=== PATIENT | female | born 1970 | race Caucasian/White ===

== ENCOUNTER → 2023-10-05 06:41 | Day surgery (SDC) | payer OTHER, SELFPAY | LOC: GI 06:41 | PROVIDERS: ATTENDING PHYSICIAN Internal Medicine Gastroenterology; FAMILY PHYSICIAN Internal Medicine | DX: Z12.11 Encounter for screening for malignant neoplasm of colon (principal); Z86.010 Personal history of colon polyps; Z15.09 Genetic susceptibility to other malignant neoplasm; K57.30 Diverticulosis of large intestine without perforation or abscess without bleeding; D12.5 Benign neoplasm of sigmoid colon | CPT/HCPCS: 45385; 88305 ==

== ENCOUNTER → 2024-05-14 06:44 | Outpatient (REF) | payer OTHER, SELFPAY | LOC: WDC 06:44 | PROVIDERS: ATTENDING PHYSICIAN Obstetrics & Gynecology; FAMILY PHYSICIAN Internal Medicine | DX: Z12.31 Encounter for screening mammogram for malignant neoplasm of breast (principal) | CPT/HCPCS: 77063; 77067 ==

== ENCOUNTER 2024-10-28 06:20 | Day surgery (SDC) | payer OTHER, SELFPAY | END 2024-10-28 14:57 | disposition home or self-care (01) | LOC: GI 06:20 | PROVIDERS: ATTENDING PHYSICIAN Internal Medicine Gastroenterology | DX: Z12.11 Encounter for screening for malignant neoplasm of colon (principal); K57.30 Diverticulosis of large intestine without perforation or abscess without bleeding; C18.9 Malignant neoplasm of colon, unspecified; Z86.0101 Personal history of adenomatous and serrated colon polyps; Z15.09 Genetic susceptibility to other malignant neoplasm | CPT/HCPCS: 43235; G0105 ==

== ENCOUNTER → 2025-06-11 09:05 | Outpatient (REF) | payer OTHER, SELFPAY | LOC: WDC 09:05 | PROVIDERS: ATTENDING PHYSICIAN Obstetrics & Gynecology; FAMILY PHYSICIAN Internal Medicine | DX: R92.8 Other abnormal and inconclusive findings on diagnostic imaging of breast (principal) | CPT/HCPCS: 76642; 77065 ==

== ENCOUNTER → 2025-06-17 09:20 | Outpatient (REF) | payer OTHER, SELFPAY ==
--- NOTE | 2025-06-17 14:31 | OID.BR.INTR ---
[facility] Breast Navigator - Initial
- -
Date of Contact: 06/17/25
Met with patient. Patient given written information on navigator services available at [facility]. Will follow up as needed per protocol.
== END ==
LOC: WDC 09:20
PROVIDERS: ATTENDING PHYSICIAN Obstetrics & Gynecology; FAMILY PHYSICIAN Internal Medicine
DX: N63.12 Unspecified lump in the right breast, upper inner quadrant (principal)
CPT/HCPCS: 19083; 88305; 88341; 88342; 88360; A4648